=== PATIENT | female | born 1995 | race Caucasian/White ===

== ENCOUNTER 2019-09-09 08:11 | Emergency (ER) | payer MEDICAID ==
[~2019-09-09] VITALS: Ht 167.6 cm; Wt 54.0 kg
[2019-09-09 08:15] VITALS: BP 107/77; Ht 167.6 cm; Wt 54.0 kg
== END 2019-09-09 08:57 | disposition home or self-care (01) ==
LOC: ED 08:11
DX: Z13.9 Encounter for screening, unspecified (principal); R11.2 Nausea with vomiting, unspecified

== ENCOUNTER 2020-07-06 06:38 | Emergency (ER) | payer MEDICAID ==
[~2020-07-06] VITALS: Ht 152.4 cm; Wt 56.9 kg
[2020-07-06 06:41] VITALS: Ht 152.4 cm; Wt 56.9 kg
[2020-07-06 07:46] LABS: BASOPHIL % 0.4 % (0-2); PLATELET COUNT 173 x10^3mcL (130-400)
[2020-07-06 07:55] LABS: CALCIUM 8.3 mg/dL (8.5-10.1); CARBON DIOXIDE 32.9 mmol/L (21-32); CHLORIDE SERUM 107 mmol/L (98-107); CREATININE SERUM 0.8 mg/dL (0.6-1.0); GFR1 > 60 mL/min; GLUCOSE SERUM 105 mg/dL (74-106); POTASSIUM SERUM 3.8 mmol/L (3.5-5.1); SODIUM SERUM 141 mmol/L (136-145)
[2020-07-06 07:59] LABS: ALBUMIN 3.4 g/dL (3.4-5.0); ALKALINE PHOSPHATASE 45 U/L (46-116); ALT/SGPT 19 U/L (14-59); AST/SGOT 13 U/L (15-37); BILIRUBIN TOTAL 0.38 mg/dL (0.20-1.00); LIPASE 147 IU/L (73-393); TOTAL PROTEIN, SERUM 6.5 g/dL (6.4-8.2)
[2020-07-06 08:13] LABS: UA SPECIFIC GRAVITY 1.015 (1.005-1.035); microscopic required? YES; urine erythrocyte 1+ (NEGATIVE)
[2020-07-06 08:28] LABS: RED CELL DISTRIBUTION WIDTH 15.1 % (11.5-14.5)
[2020-07-06 09:23] VITALS: BP 117/80
== END 2020-07-06 09:23 | disposition home or self-care (01) ==
LOC: ED 06:38
PROVIDERS: Emergency Medicine
DX: K29.70 Gastritis, unspecified, without bleeding (principal); N39.0 Urinary tract infection, site not specified; Z86.2 Personal history of diseases of the blood and blood-forming organs and certain disorders involving the immune mechanism; Z90.89 Acquired absence of other organs
CPT/HCPCS: J2405; J3490; J7030

== ENCOUNTER 2020-07-08 08:39 | Emergency (ER) | payer MEDICAID ==
[~2020-07-08] VITALS: Ht 152.4 cm; Wt 57.6 kg
[2020-07-08 08:54] VITALS: Ht 152.4 cm; Wt 57.6 kg
[2020-07-08 10:41] LABS: microscopic required? YES; urine erythrocyte 1+ (NEGATIVE)
[2020-07-08 10:41] LABS: BASOPHIL % 0.5 % (0-2); PLATELET COUNT 175 x10^3mcL (130-400)
[2020-07-08 10:42] LABS: RED CELL DISTRIBUTION WIDTH 15.1 % (11.5-14.5)
[2020-07-08 10:55] LABS: AMPHETAMINE QUAL UR NONE DETECTED (See below)
[2020-07-08 12:53] VITALS: BP 116/74
== END 2020-07-08 12:53 | disposition home or self-care (01) ==
LOC: ED 08:39
PROVIDERS: Emergency Medicine
DX: K59.00 Constipation, unspecified (principal); N39.0 Urinary tract infection, site not specified; D64.9 Anemia, unspecified; F17.208 Nicotine dependence, unspecified, with other nicotine-induced disorders; Z86.2 Personal history of diseases of the blood and blood-forming organs and certain disorders involving the immune mechanism; Z90.89 Acquired absence of other organs
CPT/HCPCS: 99406; J0500; J7030; Q0092